=== PATIENT | female | born 1950 | race Caucasian/White ===

== ENCOUNTER 2017-05-19 18:55 | Emergency (ER) | payer MEDICARE, OTHER ==
[~2017-05-19] VITALS: Ht 160 cm; Wt 61.9 kg
[~2017-05-19 18:55] MED LIST: ACCOLATE10 MG; ALBUTEROL S2.5 MG/.5 IN; ASPIRIN81 MG OR; ATENOLOL25 MG PO; AVELOX400 MG OR; CLONAZEP ODT1 MG OR; COQ-10200 MG PO; DEPO-MEDROL80 MG/ML IM; FIORICE1 PO; FIORICET PO; LEVOTHROID100 MCG OR; LEVOTHYROXIN100 MCG PO; LEVOTHYROXIN125 MCG PO; LOPID600 MG OR; LORTAB 5 OR; MEDDOSEPAK OR; METOCLOPRAM10 MG OR; NAPROXEN500 MG PO; PRAVASTATIN40 MG PO; PREVACID30 M2 PO; PROAIR HFA IN; PROVENTIL HFA IN; QVAR80 MCG IN; SIMVASTATIN40 MG OR; ULTRAM50 M1 PO; ULTRAM50 MG OR; ZOLOFT25 MG PO
[2017-05-19] MEDS ORDERED: METOPROL TAR25 MG PO (20:15)
[2017-05-19] MEDS ORDERED: BUSPAR5 MG PO (20:16)
[2017-05-19] MEDS ORDERED: PLAVIX75 MG PO (20:17)
[2017-05-19] MEDS ORDERED: OXYBUTYNIN5 M1 PO (20:17)
[2017-05-19 20:24] LABS: HEMOGLOBIN 15.4 g/dl (12.0-16.0); IMMATURE GRANULOCYTES 0.3 % (0.0-1.0); MEAN CELL VOLUME 89.2 fL CALC (80.0-100.0); MEAN CORPUSCULAR HGB 29.1 pG CALC (26.0-32.0); MEAN CORPUSCULAR HGB CONC 32.6 g/L CALC (32.0-36.0); NEUT# 4.14 thou/uL (2.00-7.15); RED BLOOD COUNT 5.3 mill/uL (4.20-5.60); RED CELL DISTRI WIDTH 12.6 % (11.5-15.5)
[2017-05-19 20:28] LABS: HEMATOCRIT 47.3 % (37.0-47.0)
[2017-05-19 20:45] LABS: ALBUMIN 4.2 g/dL (3.2-5.0); ALKALINE PHOSPHATASE 130 u/l (38-126); ANION GAP 16 (6-22 (CALC)); BILIRUBIN, TOTAL 0.4 mg/dL (0.0-1.4); BUN 6 mg/dL (8-23); BUN/CREATININE RATIO 8 (12-20 (CALC)); CARBON DIOXIDE 24 mmol/l (22-30); CHLORIDE 104 mmol/l (95-108); CREATININE 0.7 mg/dL (0.5-1.0); GFR > 60 ML/MIN (>=60 (CALC)); GFR FOR AFR.AMER. > 60 ML/MIN (>=60 (CALC)); SGOT/AST 18 u/l (9-36); SGPT/ALT 27 u/l (11-66); SODIUM 141 mmol/l (137-146); TOTAL PROTEIN 7.2 g/dL (6.3-8.2)
[2017-05-19 20:49] LABS: POTASSIUM 3.3 mmol/l (3.5-5.1)
[2017-05-19 20:56] LABS: MYOGLOBIN 47 ng/mL (0 - 62)
[2017-05-19 20:59] LABS: URINE BILIRUBIN - DIPSTICK NEGATIVE (NEGATIVE); URINE BLOOD DIPSTICK NEGATIVE (NEGATIVE); URINE COLOR YELLOW; URINE GLUCOSE - DIPSTICK NEGATIVE (NEGATIVE); URINE KETONE NEGATIVE (NEGATIVE); URINE LEUK ESTERASE NEGATIVE (NEGATIVE); URINE NITRITE - DIPSTICK NEGATIVE (Negative); URINE PROTEIN - DIPSTICK NEGATIVE (NEG-TRACE); URINE UROBILINOGEN - DIPSTICK 0.2 E.U./dL (0.2)
[2017-05-19 21:14] LABS: URINE CLARITY CLEAR
[2017-05-19 22:53] VITALS: BP 178/82
== END 2017-05-19 22:45 | disposition home or self-care (01) ==
LOC: ED 18:55
PROVIDERS: Emergency Medicine
DX: R42 Dizziness and giddiness (principal); I69.998 Other sequelae following unspecified cerebrovascular disease; H53.9 Unspecified visual disturbance; I10 Essential (primary) hypertension; E78.00 Pure hypercholesterolemia, unspecified; E03.9 Hypothyroidism, unspecified; F41.9 Anxiety disorder, unspecified; F17.210 Nicotine dependence, cigarettes, uncomplicated; Z79.02 Long term (current) use of antithrombotics/antiplatelets

== ENCOUNTER 2021-12-14 08:16 | Day surgery (SDC) | payer MEDICARE, OTHER ==
[~2021-12-14] VITALS: Ht 157.5 cm; Wt 68.9 kg
[~2021-12-14 08:16] MED LIST changes: +ACID CONTROL MA20 MG; +BUSPAR5 MG PO; +DESVENLAFAXINE100 MG; +METFORMIN500 M2 PO; +METOPROL TAR25 MG PO; +NORVASC5 M1 PO; +OXYBUTYNIN5 M1 PO; +PLAVIX75 MG PO; +ROSUVASTATIN CA10 MG; +TRAZODONE100 MG PO
[2021-12-14 10:16] VITALS: BP 90/66
== END 2021-12-14 10:34 | disposition home or self-care (01) ==
LOC: ENDO 08:16 → ORM 09:45 → ENDO 09:45
PROVIDERS: ATTEND Surgery
PROC: 0DJD8ZZ Inspection of Lower Intestinal Tract, Via Natural or Artificial Opening Endoscopic (ICD-10-PCS; principal; 2021-12-14)
PROC: 0DB78ZX Excision of Stomach, Pylorus, Via Natural or Artificial Opening Endoscopic, Diagnostic (ICD-10-PCS; 2021-12-14)
DX: K29.70 Gastritis, unspecified, without bleeding (principal); K44.9 Diaphragmatic hernia without obstruction or gangrene; K57.30 Diverticulosis of large intestine without perforation or abscess without bleeding; K64.8 Other hemorrhoids; I10 Essential (primary) hypertension; E11.9 Type 2 diabetes mellitus without complications; I69.398 Other sequelae of cerebral infarction; H53.8 Other visual disturbances; Z86.010 Personal history of colon polyps; Z79.02 Long term (current) use of antithrombotics/antiplatelets; Z79.84 Long term (current) use of oral hypoglycemic drugs